=== PATIENT | female | born 1980 | race Two or more races ===

== ENCOUNTER 2016-11-12 11:16 | Emergency (ER) | payer MEDICAID, OTHER ==
[~2016-11-12] VITALS: Ht 160 cm; Wt 85.7 kg
[2016-11-12 12:08] VITALS: BP 141/58
== END 2016-11-12 12:30 | disposition home or self-care (01) ==
LOC: ER 11:16
DX: J03.90 Acute tonsillitis, unspecified (principal); J06.9 Acute upper respiratory infection, unspecified